=== PATIENT | male | born 1995 | race Two or more races ===

== ENCOUNTER 2021-01-01 21:20 | Emergency (ER) | payer SELFPAY ==
[~2021-01-01] VITALS: Ht 162.6 cm; Wt 59.0 kg
[2021-01-01 21:22] VITALS: BP 112/79
[2021-01-01 22:33] LABS: Alcohol, Urine < 3.0 mg/dL (0-10); Amphetamine Screen, Urine NEGATIVE (NEGATIVE); Barbiturate Scree,Urine NEGATIVE (NEGATIVE); Benzodiazephine Screen, Urine NEGATIVE (NEGATIVE); Cannabinoid Screen, Urine POSITIVE (NEGATIVE); Cocaine Screen, Urine NEGATIVE (NEGATIVE)
[2021-01-01 22:41] LABS: Opiate Scree,Urine NEGATIVE (NEGATIVE); Phencyclidine Screen, Urine NEGATIVE (NEGATIVE)
== END 2021-01-01 23:50 | disposition left against medical advice (07) ==
LOC: ER 21:22
DX: F41.9 Anxiety disorder, unspecified (principal); Z53.21 Procedure and treatment not carried out due to patient leaving prior to being seen by health care provider
CPT/HCPCS: 80307